=== PATIENT | female | born 1975 | race Caucasian/White ===

== ENCOUNTER 2021-09-05 08:00 | Outpatient (CLI) | payer OTHER ==
[2021-09-08 15:50] LABS: NIL 0.04 IU/mL
== END 2021-09-05 23:59 ==
LOC: LAB.N 08:00
PROVIDERS: ATTEND Physician Assistant Medical
DX: Z20.1 Contact with and (suspected) exposure to tuberculosis (principal)
CPT/HCPCS: 36415; 86480